=== PATIENT | female | born 2000 | race Two or more races ===

== ENCOUNTER 2025-06-16 17:21 | Emergency (ER) | payer SELFPAY ==
[~2025-06-16] VITALS: Ht 172.7 cm; Wt 86.5 kg
[2025-06-16] MEDS ORDERED: ONDANSETRON HCL 4 MG/2 ML VIAL IV ONE (18:45)
[2025-06-16] MEDS ORDERED: SODIUM CHLORIDE 0.9% 1,000 ML IV ONE (18:45)
[2025-06-16] MEDS ORDERED: MORPHINE SULFATE 4 MG/ML SYR/VIAL IV ONE (18:45)
[2025-06-16 18:47] LABS: Urine Protein, UAD Negative (Negative)
--- NOTE | 2025-06-16 19:11 | ED.PDOC ---
HPI (NEURO) HPI Comments 25y F who presents to the ED for chief complaint of headache. Pt states she was getting up from standing position earlier this afternoon and states she started to feel dizzy and lightheaded. Pt states she travels from home to home for work and states she felt unable to drive to her appointments for work and states she called [employer]. Pt states at approx 1700, while in car, she started to feel nauseous, with associated abdominal pain and preceded to have vomiting episode. Pt states she started to feel unsteady on her feet with noted gait troubles with associated headache and pt called family who brought her to the ED. Pt in the ED, has noted heart rate of 56 but otherwise has stable vitals with BP 132/78, rr 18, and 02 sat of 99% on room air. Pt in the ED, is alert and oriented x 4 and able to answer all questions and no noted changes in vision, or speech are noted.Pt presents in wheelchair and states she is unsteady on her feet. Pt otherwise denies any other symptoms at this time. Chief Complaint: Headache Time Seen by MD: 19:05 Reviewed Notes: Medications, Allergies Information Source: Patient, Relative Mode of Arrival: Wheelchair Brought in by: family Past Medical History PAST MEDICAL HISTORY: Denies Surgical History: Denies all surgeries ASSISTANT AT SURGERY History: Denies all ASSISTANT AT SURGERY Hx Family History Family History: Reviewed,noncontributory to illness Social History Smoker: Non-Smoker Alcohol: Denies ETOH Use Drugs: Denies Drug Use Lives In: Home Constitutional: reports: malaise, weakness; denies: chills, diaphoresis, fatigue, fever, sweats, others EENTM: denies: blurred vision, double vision, ear bleeding, ear discharge, ear drainage, ear pain, ear ringing, eye pain, eye redness, hearing loss, mouth pain, mouth swelling, nasal discharge, nose bleeding, nose congestion, nose pain, photophobia, tearing, throat pain, throat swelling, voice changes, others Respiratory: denies: cough, hemoptysis, orthopnea, SOB at rest, shortness of breath, SOB with excertion, stridor, wheezing, others Cardiovascular: denies: chest pain, dizzy spells, diaphoresis, Dyspnea on exertion, edema, irregular heart beat, left arm pain, lightheadedness, palpitati ons, PND, syncope, others Gastrointestinal: reports: nausea, vomiting; denies: abdomen distended, abdominal pain, blood streaked bowels, constipated, diarrhea, dysphagia, difficulty swallowing, hematemesis, melena, poor appetite, poor fluid intake, rectal bleeding, rectal pain, others Genitourinary: denies: abnormal vagina bleeding, burning, dyspareunia, dysuria, flank pain, frequency, hematuria, incontinence, pain, , vagina discharge, urgency, others Neurological: reports: headache; denies: dizziness, fainting, left sided numbness, left sided weakness, numbness, paresthesia, pre-existing deficit, right sided numbness, right sided weakness, seizure, speech problems, tingling, tremors, weakness, others Musculoskeletal: denies: back pain, gout, joint pain, joint swelling, muscle pain, muscle stiffness, neck pain, others Integumetry: denies: bruises, change in color, change in hair/nails, dryness, laceration, lesions, lumps, rash, wounds, others Allergic/Immunocompromised: denies: Difficulty Healing, Frequent Infections, Hives, Itching, others Hematologic/Lymphatic: denies: anemia, blood clots, easy bleeding, easy bruising, swollen glands, others Endocrine: denies: excessive hunger, excessive sweating, excessive thirst, excessive urination, flushing, intolerance to cold, intolerance to heat, unexplained weight gain, unexplained weight loss, others Psychiatric: denies: anxiety, bipolar disorder, depression, hopeless, panic disorder, schizophrenia, sleepless, suicidal, others All Other Systems: Reviewed and Negative Physical Exam General Appearance: Mild Distress, Obese HEENT: Other (Pupils and face symmetric. Moist mucous membranes.) Neck: Full Range of Motion, Normal Inspection Respiratory: Lungs Clear, No Accessory Muscle Use, No Respiratory Distress, Normal Breath Sounds Cardiovascular: Bradycardia, No Edema, No JVD Breast Exam: Deferred Gastrointestinal: Non Tender, Soft Genitalia: Deferred Pelvic: Deferred Rectal: Deferred Extremities: Normal inspection, Normal range of motion, Non-tender, No pedal edema Neurologic: Alert (Oriented x4), mobility architect II-XII nml as Tested, Headache, No Motor D eficits, Normal Affect, Normal Mood, No Sensory Deficits Cerebellar Function: NOT DONE Reflexes: NOT DONE Skin: Dry, Normal Color, Warm Lymphatic: NOT DONE Was a procedure done? Was a procedure done?: No Differential Diagnosis (SZ) Seizure: CVA/TIA, Hypocalcemia, Hypoglycemia, Hyponatremia, Mass Lesion General Weakness: Anemia, Dehydration, Electrolyte imbalance, Encephalopathy, Hypovolemia, TIA Headache: Migraine, Carbon Monoxide Toxicity, Epidural Hemorrhage, Intracerebral Hemorrhage, Subarachnoid Hemorrhage, Subdural Hemorrhage, Meningitis X-Ray, Labs, Meds, VS Vital Signs Date Time Temp Pulse Resp B/P (MAP) Pulse Ox O2 Delivery O2 Flow Rate FiO2 06/16/25 21:21 Room Air* 0 21 06/16/25 21:05 97.5 90 16 118/58 (78) 100 97.5 06/16/25 17:40 54 06/16/25 17:24 98.3 56 18 132/78 99 98.3 Lab Test 06/16/25 19:14 06/16/25 18:55 06/16/25 18:22 Range/Units Troponin I High Sensitivity < 3 L < 3 L </=34 ng/L White Blood Count 10.9 H 4.4-10.8 10^3/uL Red Blood Count 4.92 4.0-5.20 10^6/uL Hemoglobin 14.8 12.2-16.2 g/dL Hematocrit 43.8 36.0-46.0 % Mean Corpuscular Volume 89.0 80.0-100.0 fL Mean Corpuscular Hemoglobin 30.1 28.0-32.0 pg Mean Corpuscular Hemoglobin Concent 33.8 32.0-36.0 g/dL Red Cell Distribution Width 14.7 H 11.8-14.3 % Platelet Count 246 140-450 10^3/uL Mean Platelet Volume 8.9 6.9-10.8 fL Neutrophils (%) (Auto) 79.7 37.0-80.0 % Lymphocytes (%) (Auto) 15.6 10.0-50.0 % Monocytes (%) (Auto) 3.7 0.0-12.0 % Eosinophils (%) (Auto) 0.8 0.0-7.0 % Basophils (%) (Auto) 0.2 0.0-2.0 % Neutrophils # (Auto) 8.7 H 1.6-8.6 10 ^3/uL Lymphocytes # (Auto) 1.7 0.4-5.4 10 ^3/uL Monocytes # (Auto) 0.4 0-1.3 10 ^3/uL Eosinophils # (Auto) 0.1 0-0.8 10 ^3/uL Basophils # (Auto) 0 0-0.2 10 ^3/uL Nucleated Red Blood Cells 0.1 % Sodium Level 141 136-145 mmol/L Potassium Level 4.2 3.5-5.1 mmol/L Chloride Level 105 98-107 mmol/L Carbon Dioxide Level 28 20-31 mmol/L Anion Gap 8 5-15 Blood Urea Nitrogen 9 9-23 mg/dL Creatinine 0.79 0.550-1.02 mg/dL Glomerular Filtration Rate Calc 105 >90 mL/min BUN/Creatinine Ratio 11.4 10.0-20.0 Serum Glucose 110 H 74-106 mg/dL Calcium Level 9.4 8.7-10.4 mg/dL Urine Color Light-yellow Yellow Urine Clarity Clear Clear Urine pH 7.5 5.0-9.0 Urine Specific [place] 1.015 1.001-1.035 Urine Protein Negative Negative Urine Ketones 1+ H Negative Urine Blood 2+ H Negative /uL Urine Nitrite Negative Negative Urine Bilirubin Negative Negative Urine Urobilinogen Normal Negative mg/dL Urine Leukocyte Esterase Negative Negative /uL Urine RBC 83 0 - 4 /hpf Urine Microscopic WBC 1 0-5 /HPF Urine Squamous Epithelial Cells Few <5 /hpf Urine Bacteria None seen None Seen /hpf Urine Glucose Normal Normal mg/dL Urine Test Negative Negative Current Medications Medications (Trade) Dose Ordered Sig/Charisse Route Start Time Stop Time Status Last Admin Ketorolac Tromethamine (Toradol Injection) 60 mg ONCE ONCE IM 06/16/25 21:00 06/16/25 21:01 DC 06/16/25 21:11 Ondansetron HCl (Zofran Po) 8 mg ONCE ONCE PO 06/16/25 21:00 06/16/25 21:01 DC 06/16/25 21:11 Acetaminophen (Tylenol Tablet Or Capsule) 1,000 mg ONCE ONCE PO 06/16/25 21:00 06/16/25 21:01 DC 06/16/25 21:[address] [address] Ph: [phone] DIAGNOSTIC IMAGING Diagnostic Imaging Report : [id number] Signed PATIENT: AMY BOWLING ACCT: [id number] UNIT: [id number] : 2000 LOC: ER ROOM / BED: / AGE / SEX: 25 / F ADM STATUS: REG ER SERVICE 1831 ORDERING PHYSICIAN: JERRY NAVA MD PROCEDURE(s): HWOCT - HEAD WITHOUT CONTRAST REASON: headache, gen weak, body paresthesia, n/v ORDER NUMBER(s): [id number], ACCESSION NUMBER(s): [id number] EXAM: CT HEAD WITHOUT CONTRAST INDICATION: headache, gen weak, body paresthesia, n/v TECHNIQUE: CT of the head without intravenous contrast. Radiation Dose Information: CT Dose: CTDI volume is 53.93 mGy. Dose-length pr oduct is 864.67 mGy*cm The dose indicators for CT are the volume Computed Tomography (CT) Dose Index (CTDIvol) and the Dose Length Product (DLP), and are measured in units of mGy and mGy-cm, respectively. These indicators are not patient dose, but values generated from the CT scanner acquisition factors. The report includes radiation exposure data for exposures received during this examination. COMPARISON: None FINDINGS: There is no evidence of acute intracranial hemorrhage, extra-axial collection, mass effect, midline shift, herniation or hydrocephalus. The ventricles, sulci and cisterns are age appropriate. The mortensen-white differentiation is intact. Patchy periventricular and subcortical white matter hypoattenuation is nonspecific but may be related to small vessel ischemic disease. The visualized paranasal sinuses and mastoid air cells are clear. The surrounding soft tissues and osseous structures are unremarkable. IMPRESSION: 1. No acute intracranial abnormality. ATED BY: CONSTANZA POLLOCK Jr., DO DICTATED DATE/TIME: 06/16/251922 SIGNED BY: CONSTANZA POLLOCK Jr., SIGNED DATE/TIME: 06/16/251922 CC: X-Ray, Labs, Meds, VS Comment 25-year-old female with a history of anxiety presenting complaining of a frontal headache radiating to the occipital area, associated with nausea, vomiting and body numbness Vitals remarkable for heart rate 54 Exam remarkable for bradycardia Rhythm strip independently interpreted by me: Sinus bradycardia, rate 54, no ectopy. CT head unremarkable CBC remarkable for WBC 10.9, basic metabolic panel remarkable, 2 serial troponins negative, UA positive for blood, RBCs and ketones, urine neg ative Patient treated with the following in the ED: 60 mg IM, Zofran ODT 4 mg p.o., Tylenol 1 g p.o. On re-evaluation at 2013, the patient is still had not been medicated. She stated she was no longer feeling numbness, still had a moderate headache and nausea but was not actively vomiting. Hospitalization was considered and offered, however the patient declined hospi talization, stating she was feeling better and would prefer to be discharged home. Patient does appear stable for discharge with very close outpatient follow-up with her primary physician. Rx [place], [place] Time of 1ST Reevaluation: 20:15 Reevaluation 1ST: Improved Patient Education/Counseling: Diagnosis, Treatment, Need For Follow Up Family Education/Counseling: Diagnosis, Treatment, Need For Follow Up Departure 1 Departure Time of Disposition: 20:15 Impression: Primary Impression: Headache Qualified Codes: R51.9 - Headache, unspecified Additional Impressions: Paresthesias Nausea and vomiting Qualified Codes: R11.2 - Nausea with vomiting, unspecified Disposition: 01 HOME / SELF CARE / HOMELESS Condition: Stable Additional Instructions: Your blood and urine tests were essentially unremarkable. Your head CT was unremarkable. I have prescribed medication for your symptoms. Follow-up with your primary doctor in 1-2 days. Return to ER for persistent or worsening symptoms. PROCEDURE(s): HWOCT - HEAD WITHOUT CONTRAST REASON: headache, gen weak, body paresthesia, n/v ORDER NUMBER(s): [id number], ACCESSION NUMBER(s): [id number] EXAM: CT HEAD WITHOUT CONTRAST INDICATION: headache, gen weak, body paresthesia, n/v TECHNIQUE: CT of the head without intravenous contrast. Radiation Dose Information: CT Dose: CTDI volume is 53.93 mGy. Dose-length product is 864.67 mGy*cm The dose indicators for CT are the volume Computed Tomography (CT) Dose Index (CTDIvol) and the Dose Length Product (DLP), and are measured in units of mGy and mGy-cm, respectively. These indicators are not patient dose, but values generated from the CT scanner acquisition factors. The report includes radiation exposure data for exposures received during this examination. COMPARISON: None FINDINGS: There is no evidence of acute intracranial hemorrhage, extra-axial collection, mass effect, midline shift, herniation or hydrocephalus. The ventricles, sulci and cisterns are age appropriate. The mortensen-white differentiation is intact. Patchy periventricular and subcortical white matter hypoattenuation is nonspecific but may be related to small vessel ischemic disease. The visualized paranasal sinuses and mastoid air cells are clear. The surrounding soft tissues and osseous structures are unremarkable. IMPRESSION: 1. No acute intracranial abnormality. e-Prescriptions Ondansetron Odt 4MG Tab (ZOFRAN PO) 4 Mg Tb 4 MG PO TID PRN, #20 TAB Prn nausea/vomiting ODT TAB-DISSOLVE IN MOUTH, THEN SWALLOW Prov: JERRY NAVA MD 06/16/25 Hydrocodone-Acetaminophen (Hydrocodone Bitartrate/AC 5-325 mg) 1 Tab Tab 1 TAB PO Q6HP PRN, #20 TAB Prn pain Prov: JERRY NAVA MD 06/16/25 Discharged With: Relative Critical Care Note Critical Care Time?: No Stability Stability form required: No Heart Score Heart Score: Heart Score Response (Comments) Value History N/A 0 EKG N/A 0 Age N/A 0 Risk Factors N/A 0 Troponin N/A 0 Total 0 I personally scribed for JERRY NAVA MD) on 06/16/25 at 19:11. Electronically submitted by Doreen Rey ([email or web address]). I personally scribed for JERRY NAVA [email or web address]) on 06/16/25 at 19:27. Electronically submitted by Doreen BENOIT). JERRY NAVA MD Jun 16, 2025 19:11
[2025-06-16 19:19] LABS: Hematocrit 43.8 % (36.0-46.0); Hemoglobin 14.8 g/dL (12.2-16.2); Mean Corpuscular Hemoglobin 30.1 pg (28.0-32.0); Mean Corpuscular Volume 89.0 fL (80.0-100.0); Nucleated Red Blood Cells % 0.1 %
--- NOTE | 2025-06-16 19:26 | DVH ---
EXAM: CT HEAD WITHOUT CONTRAST INDICATION: headache, gen weak, body paresthesia, n/v TECHNIQUE: CT of the head without intravenous contrast. Radiation Dose Information: CT Dose: CTDI volume is 53.93 mGy. Dose-length product is 864.67 mGy*cm The dose indicators for CT are the volume Computed Tomography (CT) Dose Index (CTDIvol) and the Dose Length Product (DLP), and are measured in units of mGy and mGy-cm, respectively. These indicators are not patient dose, but values generated from the CT scanner acquisition factors. The report includes radiation exposure data for exposures received during this examination. COMPARISON: None FINDINGS: There is no evidence of acute intracranial hemorrhage, extra-axial collection, mass effect, midline s hift, herniation or hydrocephalus. The ventricles, sulci and cisterns are age appropriate. The mortensen-white differentiation is intact. Patchy periventricular and subcortical white matter hypoattenuation is nonspecific but may be related to small vessel ischemic disease. The visualized paranasal sinuses and mastoid air cells are clear. The surrounding soft tissues and osseous structures are unremarkable. IMPRESSION: 1. No acute intracranial abnormality.
[2025-06-16 19:37] LABS: Chloride 105 mmol/L (98-107); Potassium 4.2 mmol/L (3.5-5.1); Sodium 141 mmol/L (136-145)
[2025-06-16 19:38] LABS: Anion Gap 8 (5-15); Calcium 9.4 mg/dL (8.7-10.4); Carbon Dioxide 28 mmol/L (20-31)
[2025-06-16 19:43] LABS: BUN/Creatinine Ratio 11.4 (10.0-20.0)
[2025-06-16 19:46] LABS: Blood Urea Nitrogen 9 mg/dL (9-23); Glucose 110 mg/dL (74-106)
[2025-06-16] MEDS ORDERED: HYDR-4902 PO (20:18)
[2025-06-16] MEDS ORDERED: ZOFR4T PO (20:18)
[2025-06-16 21:05] VITALS: BP 118/58; PULSE 90; RESP 16; TEMP 97.5; O2SAT 100
[2025-06-16] MEDS: KETOROLAC TROMETH 60MG/2ML VIAL IM ONE (21:11)
[2025-06-16] MEDS: ACETAMINOPHEN 500 MG TAB or CAP PO ONE (21:11)
[2025-06-16] MEDS: ONDANSETRON ODT 4 MG TAB PO ONE (21:11)
--- NOTE | 2025-06-20 07:40 | ECG ---
[facility] Test Date: 2025-06-16 Test Time: 17:40:30 Pat Name: AMY BOWLING Department: ED Room: Gender: F Legal Coordinator: carlos : 2000 Requested By: JERRY RICHARDSON Order Number: [id number] Reading MD: [place] Measurements Intervals [place] Rate: 54 P: 27 MI: 172 QRS: 63 QRSD: 119 T: 29 QT: 481 QTc: 456 Interpretive Statements Sinus rhythm Nonspecific intraventricular conduction delay Borderline T abnormalities, anterior leads Baseline wander in lead(s) II,V1,V2 Electronically Signed On 06-20-2025 18:11:42 PDT by New Centeno Please click the below link to view image of tracing.
== END 2025-06-16 21:41 | disposition home or self-care (01) ==
LOC: ER 17:21
DX: R20.2 Paresthesia of skin (principal); R51.9 Headache, unspecified; R11.2 Nausea with vomiting, unspecified; R42 Dizziness and giddiness; R10.9 Unspecified abdominal pain
CPT/HCPCS: 36415; 70450; 80048; 81001; 81025; 84484; 85025; 96372; 99285; J1885; Q0162; 93005